=== PATIENT | female | born 1950 | race Caucasian/White ===

== ENCOUNTER → 2018-06-04 | Outpatient (CLI) | payer MEDICARE ==
[~2018-06-04] MED LIST: ASP81 PO; CHOL10005 PO; HYDR-2966 PO; LIS5 PO; LISI-362 PO; NO MEDS; OSE75 PO; PAN40 PO; PROM5SYR PO; TRA50 PO; [UNRECOGNIZED DRUG - OTHER] PO
--- NOTE | 2018-06-04 17:56 | RADIOLOGY IMAGING REPORT ---
FACILITY: [facility] [place] PATIENT NAME: Nanci Montez : 1950 MR: [id number] V: [id number] EXAM DATE: ORDERING PHYSICIAN: ELMIRA BATEMAN TECHNOLOGIST: Location: [facility] Patient: Nanci Montez : 1950 Visit/Account:[id number] Date of Sevice: 06/04/2018 CHEST PA AND LAT HISTORY: Cough. COMPARISON: Chest x-ray October. FINDINGS: Cardiomediastinal contours: The heart size is normal. Lungs and pleura: There is no finding of an infiltrate, lymphadenopathy or pleural effusion. There is linear density anteriorly seen best on the lateral projection that is unchanged compared to the prio r study and likely represents scar. Bones/soft tissues: There are discogenic degenerative changes in the midthoracic spine. IMPRESSION: 1. Parenchymal lung scarring anteriorly seen best on the lateral projection. 2. No acute infiltrate. Report Dictated By: Crispin Steele MD at 06/04/2018 5:51 PM Report E-Signed By: Crispin Steele MD at 06/04/2018 5:52 PM WSN:[id number]
== END ==
LOC: RAD 15:32
PROVIDERS: ATTEND Nurse Practitioner Family
DX: R91.8 Other nonspecific abnormal finding of lung field (principal)
CPT/HCPCS: 71046